=== PATIENT | male | born 1935 | race Caucasian/White ===

== ENCOUNTER 2020-03-16 04:01 | Emergency (ER) | payer MEDICARE ==
[~2020-03-16] VITALS: Ht 185.4 cm; Wt 74.8 kg
[2020-03-16] MEDS ORDERED: LEVOXYL88 MCG ORAL (04:08)
[2020-03-16] MEDS ORDERED: SENNO8.6 MG ORAL (04:08)
[2020-03-16] MEDS ORDERED: SOTALOL80 M1 ORAL (04:08)
[2020-03-16] MEDS ORDERED: FLORINEF0.1 MG ORAL (04:08)
[2020-03-16] MEDS ORDERED: OMEPRAZOLE20 M2 ORAL (04:08)
[2020-03-16] MEDS ORDERED: FOLIC ACID1 MG ORAL (04:08)
[2020-03-16] MEDS ORDERED: PHENOBARBITAL97.2 MG PO (04:08)
[2020-03-16] MEDS ORDERED: TEGRETOL200 MG PO (04:08)
[2020-03-16] MEDS ORDERED: LOSARTAN POTASS25 MG ORAL (04:08)
[2020-03-16] MEDS ORDERED: ASPIRIN81 MG ORAL (04:08)
[2020-03-16 04:10] VITALS: BP 206/98
[2020-03-16 04:27] LABS: BASOPHILS % (AUTO) 1.3 % (0.0-2.0); HEMATOCRIT 40.3 % (42.0-52.0); HEMOGLOBIN 14.2 G/DL (14.2-18.0); LYMPHOCYTES % (AUTO) 26.6 % (20.0-45.0); MEAN CORPUSCULAR VOLUME 92 FL (80-99); MONOCYTES % (AUTO) 6.6 % (1.0-10.0); NEUTROPHILS % (AUTO) 63.6 % (45.0-75.0); PLATELET COUNT 368 K/UL (150-450); RED BLOOD COUNT 4.37 M/UL (4.70-6.10); RED CELL DISTRIBUTION WIDTH 12.1 % (11.6-14.8); WHITE BLOOD COUNT 10.2 K/UL (4.8-10.8)
--- NOTE | 2020-03-16 04:32 | Emergency Room Report ---
History of Present Illness General Chief Complaint: Seizure Source: Patient, EMS Present Illness HPI 84M Hx sz disorder, vascular dementia, vitamin D deficiency, hypertension, GERD, anemia, peripheral neuropathy here with seizure x2 prior to arrival. Hx is limited because patient is demented. I spoke with EMS and nurse at [facility] who stated that patient is new to their facility. Apparently he had fall yesterday morning and hit his head. He is not on blood thinners. He was taken to an outside facility and got a CAT scan of his brain which was negative for bleeding. When nurse came to check him overnight, he was found to have a petit mal seizure at 2am x 30 seconds. At 3am had a second seizure x 30 sec petit mal. Patient regularly takes phenobarb and tegretrol for his epilepsy. Last dose was at 9pm last night, as scheduled. The patient's symptoms were gradual onset, severity was moderate, duration since 1 day. Quality: denies pain Past medical history: sz disorder, vascular dementia, vitamin D deficiency, hypertension, GERD, anemia, peripheral neuropathy Past surgical history: Denies Smoking: Denies Alcohol use: Denies Drug use: Denies Review of systems: CONST: No fevers or chills, No night sweats PULMONARY: No productive cough, No shortness of breath CARDIAC: No chest pain, No palpitations GI: No vomiting, No diarrhea , No melena_or_BRBPR : No dysuria, No hematuria, No discharge NEURO: No new_focal_weakness_or_numbness, No vision changes 14 point Review of Systems is otherwise negative except per HPI Physical Exam: GENERAL: Awake_alert_ nontoxic, no acute distress Spo2 100% on RA -normal EYES: Extraocular muscles are intact. Conjunctivae clear. Lids without swelling. No nystagmus ENT: External nose and ear normal_in_appearance. Oropharynx clear. Head_atraumatic, Moist_oral_mucosa NECK: No JVD. No meningismus. No thyromegaly. Supple. Trachea midline RESP: Normal respiratory effort. Symmetric rise. No stridor. Clear_to_auscultation_No_rales_No_wheezes CARDIAC: Regular rate and regular rhytm. No_significant pedal edema. ABDOMEN: Soft. Nondistended. Nontender_No_rebound_or_guarding. MSK: Normal muscle tone, without rigidity. Extremities without asymmetric deformity or swelling. SKIN: Warm and dry. No visible cyanosis or pallor NEUROLOGIC: No focal neuro deficit. Patient responds to his name. Motor_and_sensation_grossly_intact. No truncal ataxia. Gait_normal Psych: Normal mood and affect, normal judgment and insight - COORDINATION OF CARE Case was discussed with: Patient Any labs and imaging that were ordered were interpreted as part of the medical decision making: Medical Decision Making/Plan: Differential includes epilepsy/breakthrough seizure, brain tumor, intracranial bleeding, metabolic encephalopathy, hyponatremia, hypoglycemia, among others. Labs were checked, which were reassuring, no evidence of severe acidosis, or significant metabolic derangement. No evidence of myxedema coma CT was ordered, givenrecent history of trauma and found to be negative for acute intracranial hemorrhage. Yesterday also had a CT at outside facility which was negative. Given this, low likelihood for occult subarachnoid hemorrhage. Patient is back to their baseline neurologic status, no focal deficits, no e/o brain tumor, bleed. No headache, not consistent with subarachnoid hemorrhage , no indication for LP. Patient had serial neurologic exams in the ER, and is back to baseline (demented), no neuro deficits, and stable for dc back to his shelter facility with follow-up with PMD. Allergies: Coded Allergies: VALPROIC ACID (Verified Allergy, Mild, 03/16/20) WARFARIN (Verified Allergy, Mild, 03/16/20) COVID-19 Screening Contact w/high risk pt: No Experienced COVID-19 symptoms?: No COVID-19 Testing performed ONLINE MARKETING SPECIALIST: No Nursing Documentation-PMH Past Medical History: No History, Except For Hx Cardiac Problems: Yes - HEART FAILURE HYPOTHYROIDISM, EMBOLISM / THROMBOSIS A FLUTTER Hx Hypertension: Yes Hx Pacemaker: No Hx Asthma: No Hx COPD: No Hx Diabetes: No Hx Cancer: No Hx Gastrointestinal Problems: No Hx Dialysis: No History Of Psychiatric Problem: Yes - DEMENTIA Hx Neurological Problems: Yes - EPILEPSY, SZ Hx Cerebrovascular Accident: No Hx Seizures: Yes Physical Exam Vital Signs Date Time Temp Pulse Resp B/P (MAP) Pulse Ox O2 Delivery O2 Flow Rate FiO2 03/16/20 03:51 99.0 91 16 197/99 (131) 97 Room Air Sp02 EP Interpretation: reviewed, normal Medical Decision Making Diagnostic Impression: Primary Impression: Seizure disorder Additional Impression: Breakthrough seizure EKG Diagnostic Results PA Scribe Text 12-lead EKG (interpreted by me) Time: 621 Indication: Rhythm analysis Tracing visualized and Interpreted by me. Rhythm: Normal sinus rhythm Rate: 87 bpm QTc: 476 Morphology: No_significant_ST_elevations_or_depressions, No STEMI Impression: Normal_sinus_rhythm_without_significant_abnormality CT/MRI/US Diagnostic Results CT/MRI/US Diagnostic Results : Impression CT Head no Contrast FINDINGS: Brain: No evidence of acute intracranial hemorrhage. No mass effect or midline shift. Moderate parenchymal volume loss. Moderate small vessel ischemic disease. Chronic right basal ganglia lacunar infarct. Ventricles: Unremarkable. No ventriculomegaly. Bones/joints: Unremarkable. No acute fracture. Soft tissues: Unremarkable. Sinuses: Unremarkable as visualized. No acute sinusitis. Mastoid air cells: No mastoid effusion. Status post partial right mastoidectomy. IMPRESSION: No evidence of acute intracranial abnormality. Moderate parenchymal atrophy and small vessel ischemic disease. Reevaluation Time: 06:30 Last Vital Signs Date Time Temp Pulse Resp B/P (MAP) Pulse Ox O2 Delivery O2 Flow Rate FiO2 10/2/20 03:51 99.0 91 16 197/99 (131) 97 Room Air Status: improved Disposition: SNF Admit Decision Time: 06:30 Condition: Stable Referrals: Hunter Acharya MD (PCP) Patient Instructions: Seizure, Adult Additional Instructions: Instructions for patient/fitness services manager: Follow up with your physician in 1-2 days. Follow-up with your doctor sooner if your condition requires a more timely clinical reevaluation. Return to the emergency department immediately if you feel that your condition is worsening or if you have any new or concerning symptoms. Review your discharge instructions and take any prescriptions given as instructed. [facility] PROVIDES FREE OR LOW-COST HEALTH SERVICES TO PEOPLE WHO CAN SHOW PROOF THAT THEY LIVE IN [facility]. TO FIND MORE CLINICS PARTNERED WITH [facility] TO PROVIDE SERVICE, PLEASE CALL . Melinda Guajardo D.O. Mar 16, 2020 04:32
[2020-03-16 04:36] LABS: ANION GAP 10 mmol/L (5-15); BLOOD UREA NITROGEN 25 mg/dL (7-18); CALCIUM 8.4 MG/DL (8.5-10.1); CARBON DIOXIDE 25 MMOL/L (21-32); CHLORIDE 106 MMOL/L (98-107); CREATININE 1.2 MG/DL (0.55-1.30); POTASSIUM 3.8 MMOL/L (3.5-5.1); SODIUM 140 MMOL/L (136-145)
[2020-03-16 04:49] LABS: ALANINE AMINOTRANSFERASE 81 U/L (12-78); ALBUMIN/GLOBULIN RATIO 0.7 (1.0-2.7); ALKALINE PHOSPHATASE 167 U/L (46-116); ASPARTATE AMINO TRANSFERASE 46 U/L (15-37); BILIRUBIN,TOTAL 0.4 MG/DL (0.2-1.0)
--- NOTE | 2020-03-16 04:56 | Diagnostic Imaging Report ---
EXAM: CT Head Without Intravenous Contrast CLINICAL HISTORY: Seizure TECHNIQUE: Axial computed tomography images of the head/brain without intravenous contrast. CTDI is 53.4 mGy and DLP is 1259.2 mGy-cm. One or more of the following dose reduction techniques were used: automated exposure control, adjustment of the mA and/or kV according to patient size, use of iterative reconstruction technique. COMPARISON: No relevant prior studies available. FINDINGS: Brain: No evidence of acute intracranial hemorrhage. No mass effect or midline shift. Moderate parenchymal volume loss. Moderate small vessel ischemic disease. Chronic right basal ganglia lacunar infarct. Ventricles: Unremarkable. No ventriculomegaly. Bones/joints: Unremarkable. No acute fracture. Soft tissues: Unremarkable. Sinuses: Unremarkable as visualized. No acute sinusitis. Mastoid air cells: No mastoid effusion. Status post partial right mastoidectomy. IMPRESSION: No evidence of acute intracranial abnormality. Moderate parenchymal atrophy and small vessel ischemic disease.
[2020-03-16] MEDS ORDERED: levETIRAcetam 1,000mg/NS100ml 100 ML IVPB ONE (05:30)
[2020-03-16] MEDS ORDERED: Enalaprilat 2.5mg/2ml Inj IV ONE (05:45)
[2020-03-16 05:50] VITALS: BP 190/77
[2020-03-16 06:55] VITALS: BP 167/77
== END 2020-03-16 06:55 ==
LOC: EDBD 04:01 → EMR 04:08
DX: G40.909 Epilepsy, unspecified, not intractable, without status epilepticus (principal); E03.9 Hypothyroidism, unspecified; Z86.718 Personal history of other venous thrombosis and embolism; I10 Essential (primary) hypertension; F03.90 Unspecified dementia, unspecified severity, without behavioral disturbance, psychotic disturbance, mood disturbance, and anxiety; Z88.8 Allergy status to other drugs, medicaments and biological substances; K21.9 Gastro-esophageal reflux disease without esophagitis; E11.42 Type 2 diabetes mellitus with diabetic polyneuropathy
CPT/HCPCS: 36415; 70450; 80053; 84439; 84443; 84484; 85025; 96361; 96365; 96375; 99284; G0480; J1953; J7030